=== PATIENT | female | born 1995 | race African-American/Black ===

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

== ENCOUNTER 2017-05-03 22:52 | Emergency (ER) | payer OTHER ==
[~2017-05-03] VITALS: Ht 152.4 cm; Wt 82.7 kg
[~2017-05-03 22:52] MED LIST changes: +CIPR0.3S OS; -COLA100C PO; +COLA100C5 PO; +birth control PO
[2017-05-04] MEDS: ACETAMINOPHEN 325 MG TAB PO ONE (00:07)
[2017-05-04] MEDS ORDERED: FLON1SPR (00:29)
[2017-05-04] MEDS ORDERED: IBUP-1022 PO (00:29)
[2017-05-04] MEDS ORDERED: BENZ200C53 PO (00:29)
[2017-05-04 00:37] VITALS: BP 138/79
== END 2017-05-04 00:39 | disposition home or self-care (01) ==
LOC: M ED 22:52
DX: J06.9 Acute upper respiratory infection, unspecified (principal)

== ENCOUNTER → 2017-05-14 | Outpatient (CLI) | payer OTHER ==
[~2017-05-14] MED LIST changes: +BENZ200C53 PO; +DOXY100C37 PO; +FLON1SPR; +IBUP-1022 PO; +MOTR200T44 PO; +RALT40TA PO; +TRUVTAB PO; +TYLE325T5 PO
[2017-05-14 07:41] LABS: BASO % 0.4 % (0.0-1.0); EOS # 0.1 K/mm3 (0.0-0.50); EOS % 1.3 % (0.0-3.0); LARGE UNSTAINED CELL # 0.2 K/mm3 (0.0-0.4); LARGE UNSTAINED CELL % 2.3 % (0.0-4.0); LYMPH # 3.5 K/mm3 (1.5-6.5); LYMPH % 39.2 % (24.0-44.0); MEAN CORPUSCULAR HEMOGLOBIN 30.1 pg (27.0-33.0); MEAN CORPUSCULAR HGB CONC 34.5 g/dl (32.0-36.5); MEAN CORPUSCULAR VOLUME 87.3 fl (80.0-96.0); MONO # 0.4 K/mm3 (0.0-0.8); MONO % 4.2 % (0.0-5.0); NEUTROPHILS # 4.4 K/mm3 (1.8-7.7); NEUTROPHILS % 52.7 % (36.0-66.0); PLATELET COUNT, AUTOMATED 318 k/mm3 (150-450); RED CELL DISTRIBUTION WIDTH 12.5 % (11.5-14.5); WHITE BLOOD COUNT 8.4 K/mm3 (4.0-10.0)
--- NOTE | 2017-05-14 07:44 | REP ---
Abdominal right upper quadrant ultrasound: There is a negative Villaseñor's sign to transducer pressure. There is no cholelithiasis, gallbladder wall thickening or pericholecystic fluid. There is no intrahepatic or extrahepatic biliary duct dilatation. The common duct measures 3.3 mm in diameter. The hepatic parenchyma is homogeneous. There are no hepatic masses. The visualized portion of the pancreatic head is unremarkable. The body and tail are obscured by bowel gas. There is no right renal hydronephrosis, calculus, mass or cyst. Right kidney is normal size measuring 11.2 centimeters cranial caudad length. Impression: Essentially negative abdominal right upper quadrant ultrasound. Signed by Seven Staley MD 05/14/2017 07:35 A
[2017-05-14 08:05] LABS: ALBUMIN 3.2 GM/DL (3.2-5.2); ALBUMIN/GLOBULIN RATIO 0.91 (1.00-1.93); ALKALINE PHOSPHATASE 72 U/L (45-117); ALT/SGPT 20 U/L (12-78); ANION GAP 10 MEQ/L (8-16); AST/SGOT 10 U/L (15-37); BILIRUBIN,TOTAL 0.4 MG/DL (0.2-1.0); BLOOD UREA NITROGEN 12 MG/DL (7-18); CARBON DIOXIDE LEVEL 23 MEQ/L (21-32); CHLORIDE LEVEL 107 MEQ/L (98-107); CREATININE FOR GFR 0.72 MG/DL (0.55-1.02); GLUCOSE, FASTING 82 MG/DL (70-105); POTASSIUM SERUM 4.1 MEQ/L (3.5-5.1); SODIUM LEVEL 140 MEQ/L (136-145); TOTAL PROTEIN 6.7 GM/DL (6.4-8.2)
== END ==
LOC: M RAD 07:04
PROVIDERS: ATTEND Nurse Practitioner Family
DX: R10.10 Upper abdominal pain, unspecified (principal)

== ENCOUNTER 2017-05-15 19:43 | Emergency (ER) | payer OTHER ==
[~2017-05-15] VITALS: Ht 152.4 cm; Wt 81.8 kg
[~2017-05-15 19:43] MED LIST changes: -DOXY100C37 PO; -MOTR200T44 PO; -RALT40TA PO; -TRUVTAB PO; -TYLE325T5 PO
[2017-05-15 19:52] VITALS: BP 132/79
[2017-05-15] MEDS ORDERED: cefTRIAXone SOD 250 MG VIAL (J0696) IM ONE (23:45)
[2017-05-15] MEDS ORDERED: EXPOSURE KIT-ADULT 7 DAY SUPPLY PO ONE ×2 (23:45)
[2017-05-15] MEDS ORDERED: OVRAL-28 TABLET PO ONE (23:45)
[2017-05-15] MEDS ORDERED: DOXYCYCLINE HYCLATE 100 MG TAB PO ONE (23:45)
[2017-05-16] MEDS ORDERED: TRUVTAB PO (00:06)
[2017-05-16] MEDS ORDERED: DOXY100C37 PO (00:06)
[2017-05-16] MEDS ORDERED: RALT40TA PO (00:06)
[2017-05-16 02:29] LABS: CONTROL LINE HCG INT CTR LINE PRESENT
[2017-05-16 02:53] LABS: CONTROL LINE INT CTR LINE PRESENT
[2017-05-16 11:27] LABS: HEPATITIS B SURFACE ANTIBODY POSITIVE (POSITIVE)
== END 2017-05-16 01:58 | disposition home or self-care (01) ==
LOC: M ED 19:43
DX: Z04.41 Encounter for examination and observation following alleged adult rape (principal)

== ENCOUNTER 2017-08-19 22:49 | Emergency (ER) | payer OTHER ==
[~2017-08-19] VITALS: Ht 154.9 cm; Wt 81.8 kg
[~2017-08-19 22:49] MED LIST changes: +DOXY100C37 PO; +RALT40TA PO; +TRUVTAB PO
[2017-08-19 22:51] VITALS: BP 155/93
[2017-08-19] MEDS ORDERED: TYLE325T5 PO (23:14)
[2017-08-19] MEDS ORDERED: MOTR200T44 PO (23:14)
== END 2017-08-20 02:40 | disposition left against medical advice (07) ==
LOC: M ED 22:49
DX: R51 Headache (principal); Z53.21 Procedure and treatment not carried out due to patient leaving prior to being seen by health care provider

== ENCOUNTER 2017-09-28 06:15 | Emergency (ER) | payer OTHER ==
[~2017-09-28] VITALS: Ht 162.6 cm; Wt 77.3 kg
[~2017-09-28 06:15] MED LIST changes: +MOTR200T44 PO; +TYLE325T5 PO
[2017-09-28] MEDS ORDERED: KETOROLAC 30 MG/ML VIAL (J1885) IV ONE (08:15)
[2017-09-28] MEDS ORDERED: NS 1,000 ML IV ONE (08:15)
[2017-09-28 08:36] LABS: BASO % 0.3 % (0.0-1.0); EOS # 0.1 10^3/uL (0.0-0.50); EOS % 0.8 % (0.0-3.0); IMMATURE GRANULOCYTE % 0.5 % (0-0); LYMPH # 1.6 10^3/uL (1.5-6.5); LYMPH % 13.2 % (24.0-44.0); MEAN CORPUSCULAR HEMOGLOBIN 29.5 pg (27.0-33.0); MEAN CORPUSCULAR HGB CONC 34.4 g/dl (32.0-36.5); MEAN CORPUSCULAR VOLUME 85.6 fl (80.0-96.0); NEUTROPHILS # 9.2 10^3/uL (1.8-7.7); NEUTROPHILS % 77.2 % (36.0-66.0); PLATELET COUNT, AUTOMATED 289 10^3/uL (150-450); RED CELL DISTRIBUTION WIDTH 12.4 % (11.5-14.5); WHITE BLOOD COUNT 11.9 10^3/uL (4.0-10.0)
[2017-09-28 08:59] LABS: ALBUMIN 3.4 GM/DL (3.2-5.2); ALBUMIN/GLOBULIN RATIO 0.92 (1.00-1.93); ALKALINE PHOSPHATASE 62 U/L (45-117); ALT/SGPT 16 U/L (12-78); AMYLASE 58 U/L (25-115); ANION GAP 9 MEQ/L (8-16); AST/SGOT 8 U/L (7-37); BILIRUBIN,DIRECT 0.2 MG/DL (0.0-0.2); BILIRUBIN,TOTAL 0.9 MG/DL (0.2-1.0); BLOOD UREA NITROGEN 14 MG/DL (7-18); CALCIUM LEVEL 8.3 MG/DL (8.5-10.1); CARBON DIOXIDE LEVEL 22 MEQ/L (21-32); CHLORIDE LEVEL 107 MEQ/L (98-107); CREATININE FOR GFR 0.67 MG/DL (0.55-1.02); GLUCOSE, FASTING 101 MG/DL (70-105); POTASSIUM SERUM 3.7 MEQ/L (3.5-5.1); SODIUM LEVEL 138 MEQ/L (136-145); TOTAL PROTEIN 7.1 GM/DL (6.4-8.2)
[2017-09-28] MEDS ORDERED: ZOFR4TAB3 PO (10:08)
[2017-09-28] MEDS ORDERED: PROT1TAB2 PO (10:08)
--- NOTE | 2017-09-28 10:08 | REP ---
GALLBLADDER ULTRASOUND: HISTORY: Right upper quadrant pain. COMPARISON: 05/14/2017 There are no filling defects in the gallbladder. The gallbladder wall measures 1.4 mm. The common bile duct measures 3.6 mm. The liver is normal in echogenicity. The pancreas is not seen due to overlying bowel gas. The right kidney measures 5.8 cm in transverse x 5.1 cm in AP x 11 cm in cephalocaudal dimensions. There is no hydronephrosis or mass. IMPRESSION: Normal gallbladder ultrasound. Signed by Manuel Limon MD 09/28/2017 10:10 A
[2017-09-28 10:13] VITALS: BP 131/86
== END 2017-09-28 10:22 | disposition home or self-care (01) ==
LOC: M ED 06:15
DX: K29.00 Acute gastritis without bleeding (principal); E28.2 Polycystic ovarian syndrome
CPT/HCPCS: 76705; 80048; 80076; 81001; 81025; 82150; 83690; 85025; 96374; 99284; J1885

== ENCOUNTER → 2017-12-03 | Outpatient (REF) | payer OTHER | LOC: M SFHCLERA 17:01 | DX: R59.0 Localized enlarged lymph nodes (principal) ==

== ENCOUNTER → 2017-12-12 | Outpatient (REF) | payer OTHER ==
[2017-12-12 21:59] LABS: CHLAMYDIA DNA AMPLIFICATION NEGATIVE (NEGATIVE); GC DNA AMPLIFICATION NEGATIVE (NEGATIVE)
== END ==
LOC: M SFHCLERA 17:27
DX: Z20.2 Contact with and (suspected) exposure to infections with a predominantly sexual mode of transmission (principal)

== ENCOUNTER → 2018-02-20 | Outpatient (REF) | payer OTHER | LOC: M SFHCLERA 10:47 | DX: N89.8 Other specified noninflammatory disorders of vagina (principal) | CPT/HCPCS: 87186 ==

== ENCOUNTER → 2018-03-01 | Outpatient (REF) | payer OTHER ==
[2018-03-02 13:22] LABS: CHLAMYDIA DNA AMPLIFICATION NEGATIVE (NEGATIVE); GC DNA AMPLIFICATION NEGATIVE (NEGATIVE)
== END ==
LOC: M SFHCLERA 16:33
DX: R10.30 Lower abdominal pain, unspecified (principal)
CPT/HCPCS: 87086

== ENCOUNTER 2018-09-21 21:29 | Emergency (ER) | payer OTHER ==
[2018-09-21 22:33] LABS: KETONE, URINE AUTO RFX NEGATIVE (NEGATIVE); LEUKOCYTE ESTERASE UR AUTO RFX NEGATIVE (NEGATIVE); MUCUS, URINE RFX SMALL (NEGATIVE); NITRITE, URINE AUTO RFX NEGATIVE (NEGATIVE); RBC, URINE AUTO RFX 0 /HPF (0-3); SPECIFIC GRAVITY UR AUTO RFX 1.013 (1.002-1.035); SQUAM EPITHELIAL CELL UR AURFX 0 /HPF (0-6); WBC, URINE AUTO RFX 2 /HPF (0-3)
[2018-09-21 23:12] LABS: BASO % 0.3 % (0.0-1.0); EOS # 0.1 10^3/uL (0.0-0.50); EOS % 0.8 % (0.0-3.0); HEMATOCRIT 37.7 % (36.0-47.0); HEMOGLOBIN 12.9 g/dl (12.0-15.5); IMMATURE GRANULOCYTE % 0.4 % (0-3.0); LYMPH # 3.1 10^3/uL (1.5-6.5); LYMPH % 26.1 % (24.0-44.0); MEAN CORPUSCULAR HEMOGLOBIN 28.7 pg (27.0-33.0); MEAN CORPUSCULAR HGB CONC 34.2 g/dl (32.0-36.5); MONO # 0.7 10^3/uL (0.0-0.8); MONO % 6.1 % (0.0-5.0); NEUTROPHILS # 7.8 10^3/uL (1.8-7.7); NEUTROPHILS % 66.3 % (36.0-66.0); PLATELET COUNT, AUTOMATED 323 10^3/uL (150-450); RED BLOOD COUNT 4.49 10^6/uL (4.00-5.40); RED CELL DISTRIBUTION WIDTH 12.9 % (11.5-14.5); WHITE BLOOD COUNT 11.8 10^3/uL (4.0-10.0)
[2018-09-21] MEDS: diphenhydrAMINE INJ 50MG/ML VIAL (J1200) IV (23:15)
[2018-09-21] MEDS: METOCLOPRAMIDE INJ 10MG/2ML VIAL (J2765) IV (23:15)
[2018-09-21] MEDS: ACETAMINOPHEN TAB 650MG DOSE (2X325MG) PO (23:15)
[2018-09-21] MEDS: NS 1,000 ML IV (23:16)
[2018-09-21 23:45] LABS: ALBUMIN 3.4 GM/DL (3.2-5.2); ALKALINE PHOSPHATASE 104 U/L (45-117); ALT/SGPT 24 U/L (12-78); ANION GAP 11 MEQ/L (8-16); AST/SGOT 12 U/L (7-37); BILIRUBIN,TOTAL 0.4 MG/DL (0.2-1.0); BLOOD UREA NITROGEN 7 MG/DL (7-18); CALCIUM LEVEL 8.4 MG/DL (8.5-10.1); CARBON DIOXIDE LEVEL 22 MEQ/L (21-32); CHLORIDE LEVEL 103 MEQ/L (98-107); CREATININE FOR GFR 0.57 MG/DL (0.55-1.30); GLOMERULAR FILTRATION RATE > 60.0 (>60); GLUCOSE, FASTING 85 MG/DL (70-100); HCG, SERUM QUANTITATIVE 28188 MIU/ML; LIPASE 138 U/L (73-393); POTASSIUM SERUM 3.6 MEQ/L (3.5-5.1); SODIUM LEVEL 136 MEQ/L (136-145); TOTAL PROTEIN 6.8 GM/DL (6.4-8.2)
[2018-09-21] MEDS ORDERED: NORCO 5/325MG TABLET (BULK FOR ED) PO (23:45)
[2018-09-21 23:50] LABS: INFLUENZA A AMPLIFICATION NEGATIVE (NEGATIVE); INFLUENZA B AMPLIFICATION NEGATIVE (NEGATIVE)
== END 2018-09-22 01:42 | disposition home or self-care (01) ==
LOC: M ED 09-22 01:42
DX: O99.89 Other specified diseases and conditions complicating pregnancy, childbirth and the puerperium (principal); G43.909 Migraine, unspecified, not intractable, without status migrainosus; E28.2 Polycystic ovarian syndrome; Z3A.01 Less than 8 weeks gestation of pregnancy
CPT/HCPCS: J1200

== ENCOUNTER → 2018-10-01 | Outpatient (CLI) | payer OTHER ==
[2018-10-01 14:25] LABS: BASO % 0.3 % (0.0-1.0); EOS # 0.1 10^3/uL (0.0-0.50); EOS % 0.8 % (0.0-3.0); HEMATOCRIT 36.4 % (36.0-47.0); HEMOGLOBIN 12.5 g/dl (12.0-15.5); IMMATURE GRANULOCYTE % 0.4 % (0-3.0); LYMPH % 17.6 % (24.0-44.0); MEAN CORPUSCULAR HEMOGLOBIN 28.7 pg (27.0-33.0); MEAN CORPUSCULAR HGB CONC 34.3 g/dl (32.0-36.5); MEAN CORPUSCULAR VOLUME 83.7 fl (80.0-96.0); MONO # 0.8 10^3/uL (0.0-0.8); NEUTROPHILS # 8.5 10^3/uL (1.8-7.7); NEUTROPHILS % 73.9 % (36.0-66.0); PLATELET COUNT, AUTOMATED 304 10^3/uL (150-450); RED BLOOD COUNT 4.35 10^6/uL (4.00-5.40); RED CELL DISTRIBUTION WIDTH 12.8 % (11.5-14.5); WHITE BLOOD COUNT 11.6 10^3/uL (4.0-10.0)
[2018-10-01 16:09] LABS: CHLAMYDIA DNA AMPLIFICATION NEGATIVE (NEGATIVE); GC DNA AMPLIFICATION NEGATIVE (NEGATIVE)
[2018-10-02 11:46] LABS: HEPATITIS C VIRUS ABY INDEX 0.1 INDEX (<0.8)
[2018-10-02 11:46] LABS: HBsAg Prenatal NEGATIVE (NEGATIVE); HIV 1&2 SCREEN CENTAUR NEGATIVE (NEGATIVE); RUBELLA IgG QUALITATIVE IMMUNE (IMMUNE)
== END ==
LOC: M SMT 10:36
DX: Z34.81 Encounter for supervision of other normal pregnancy, first trimester (principal); Z36.89 Encounter for other specified antenatal screening; Z3A.08 8 weeks gestation of pregnancy

== ENCOUNTER → 2018-10-29 | Outpatient (REF) | payer OTHER ==
[~2018-10-29] MED LIST changes: -BENZ200C53 PO; +BENZ200C70 PO; +MAPA500T2 PO; +PRENMIS3 PO; +PROT1TAB2 PO; +REGL10TA6 PO; +ZOFR4TAB14 PO
[2018-10-29 23:03] LABS: CHLAMYDIA DNA AMPLIFICATION NEGATIVE (NEGATIVE); GC DNA AMPLIFICATION NEGATIVE (NEGATIVE)
== END ==
LOC: M SFHCLERA 13:19
PROVIDERS: ATTEND Nurse Practitioner Family
DX: N89.8 Other specified noninflammatory disorders of vagina (principal)
CPT/HCPCS: 81002; 87070; 87077; 87086; 87491; 87591; G0463

== ENCOUNTER → 2018-11-12 | Outpatient (CLI) | payer OTHER | LOC: M LAB 12:44 | PROVIDERS: ATTEND Advanced Practice Midwife | DX: Z34.82 Encounter for supervision of other normal pregnancy, second trimester (principal) ==

== ENCOUNTER 2018-11-25 11:19 | Emergency (ER) | payer OTHER ==
[~2018-11-25] VITALS: Ht 154.9 cm; Wt 85.3 kg
[2018-11-25] MEDS ORDERED: VALA1TAB2 (11:25)
[2018-11-25 13:21] VITALS: BP 116/69
[2018-11-25] MEDS ORDERED: CLOT1CRE19 PV (13:39)
[2018-11-25 14:27] LABS: CHLAMYDIA DNA AMPLIFICATION NEGATIVE (NEGATIVE); GC DNA AMPLIFICATION NEGATIVE (NEGATIVE)
== END 2018-11-25 13:44 | disposition home or self-care (01) ==
LOC: M ED 11:19
DX: O23.592 Infection of other part of genital tract in pregnancy, second trimester (principal); B37.3 Candidiasis of vulva and vagina; Z3A.16 16 weeks gestation of pregnancy

== ENCOUNTER → 2018-12-10 | Outpatient (CLI) | payer OTHER ==
[~2018-12-10] MED LIST changes: +CLOT1CRE19 PV; +VALA1TAB2
--- NOTE | 2018-12-10 09:11 | REP ---
Obstetric ultrasound for anatomy: There is a single intrauterine gestation in a breech presentation. There is motion and cardiac activity. The heart rate is 146 beats per minute. The placenta is posterior without previa or abruptio. The placenta is grade zero maturity. The amniotic fluid volume subjectively is normal. The cervix measures 4.9 cm length. Gestational age by today's ultrasound is 17 weeks 3 days/ALEX 05/17/2019. Gestational age by the first ultrasound is 17 weeks 4 days/ALEX 05/16/2019. Gestational age by LMP is 18 weeks 1 day/ALEX 05/12/2019. weight is 194 grams (0 pounds, 6 ounces). This is the 22nd percentile for 18 weeks 1 day. The following anatomic structures are identified and are unremarkable: Intracranial lateral ventricles, choroid plexus, cerebellum, face, upper lip, lungs, diaphragm, stomach, cord insertion, three-vessel cord, kidneys, bladder and upper lower extremities. The following structures are suboptimally evaluated because of position: Four-chamber view of the heart, cardiac right and left ventricular outflow tracts and spine. A followup study dedicated to these structures might be considered. Electronically Signed by Seven Staley MD 12/10/2018 09:02 A
== END ==
LOC: M RAD 07:37
PROVIDERS: ATTEND Specialist
DX: Z34.82 Encounter for supervision of other normal pregnancy, second trimester (principal); Z3A.17 17 weeks gestation of pregnancy

== ENCOUNTER → 2018-12-30 | Outpatient (CLI) | payer OTHER ==
--- NOTE | 2018-12-31 03:13 | REP ---
Clinical: Anatomical evaluation. Comparison: 12/10/2018 . Findings: Examination demonstrates a single live intrauterine in cephalic presentation. motion is identified by technologist. Placenta is noted posterior and grade grade 1 without evidence for placenta previa or abruption. Amniotic fluid volume is normal. Cervix measures 4.0 cm in length and appears closed. No evidence for nuchal cord. Gestational age by LMP 21 weeks 0 days with ALEX 05/12/2019 . Gestational age by current measurements 20 weeks 2 days with ALEX 05/17/2019 . FHR equals 153 beats per minute. Estimated weight 374 grams ( 38th percentile). Anatomical assessment demonstrates normal structures including cranium, choroid plexus, cavum, cerebellum/posterior fossa, facial features, lungs, four-chamber heart/ventricular outflow tracts, diaphragm, stomach, cord insertion/three-vessel cord, kidneys/bladder, spine, and extremities. Impression: Single live intrauterine in cephalic presentation demonstrating appropriate interval growth. In conjunction with prior examination anatomical assessment is complete and normal. No gross abnormalities are identified. Electronically Signed by Magdy Burroughs MD 12/31/2018 03:05 A
== END ==
LOC: M SMT 13:00
PROVIDERS: ATTEND Specialist
DX: Z34.82 Encounter for supervision of other normal pregnancy, second trimester (principal); Z3A.21 21 weeks gestation of pregnancy

== ENCOUNTER → 2019-02-05 | Outpatient (CLI) | payer OTHER ==
[~2019-02-05] MED LIST changes: -ACET50TA PO; +MAPA500T17 PO
[2019-02-05 12:01] LABS: BASO % 0.2 % (0.0-1.0); EOS % 0.4 % (0.0-3.0); HEMATOCRIT 33.3 % (36.0-47.0); HEMOGLOBIN 11.2 g/dl (12.0-15.5); LYMPH # 1.6 10^3/uL (1.5-6.5); LYMPH % 14.7 % (24.0-44.0); MEAN CORPUSCULAR HGB CONC 33.6 g/dl (32.0-36.5); MEAN CORPUSCULAR VOLUME 89.3 fl (80.0-96.0); MONO # 0.6 10^3/uL (0.0-0.8); MONO % 5.1 % (0.0-5.0); NEUTROPHILS # 8.8 10^3/uL (1.8-7.7); NEUTROPHILS % 79.1 % (36.0-66.0); PLATELET COUNT, AUTOMATED 238 10^3/uL (150-450); RED BLOOD COUNT 3.73 10^6/uL (4.00-5.40)
== END ==
LOC: M WUC 10:28
PROVIDERS: ATTEND Specialist
DX: Z34.82 Encounter for supervision of other normal pregnancy, second trimester (principal)

== ENCOUNTER 2019-03-21 12:18 | Outpatient (CLI) | payer OTHER ==
[~2019-03-21] VITALS: Ht 154.9 cm; Wt 89.0 kg
[2019-03-21 12:33] VITALS: BP 116/70
--- NOTE | 2019-03-21 13:17 | NUR ---
L&D Triage Note: S: 23yo @ 34w0d presents with c/o vaginal spotting. Reports active movement. No ctx or LOF O: vss, AF cat 1 tracing with FHR 140s, spont acceleration, no deceleration moderate variability gen: well appearing abd: soft, nttp cx:l/closed SSE: no active bleeding or old blood A/P: 23yo at 34w0d w c/o vaginal bleeding, normal exam -reassuring status home with PTL precautions and FKCs -f/u at next OB appt 03/29 Ranjana Barone MD
== END 2019-03-21 13:30 | disposition home or self-care (01) ==
LOC: M LDO 12:18
PROVIDERS: ATTEND Obstetrics & Gynecology
DX: O26.853 Spotting complicating pregnancy, third trimester (principal); Z3A.34 34 weeks gestation of pregnancy
CPT/HCPCS: 59025; G0378; G0463

== ENCOUNTER → 2019-04-13 | Outpatient (REF) | payer OTHER | LOC: M LAB REF 17:46 | PROVIDERS: ATTEND Specialist | DX: Z34.83 Encounter for supervision of other normal pregnancy, third trimester (principal); Z3A.35 35 weeks gestation of pregnancy ==

== ENCOUNTER 2019-04-21 00:19 | Outpatient (CLI) | payer OTHER ==
[~2019-04-21] VITALS: Ht 154.9 cm; Wt 90.5 kg
[2019-04-21 02:05] VITALS: BP 139/86
[2019-04-21] MEDS ORDERED: ACET-907 PO (07:54)
== END 2019-04-21 01:56 | disposition home or self-care (01) ==
LOC: M LDO 00:19
PROVIDERS: ATTEND Specialist
DX: O26.853 Spotting complicating pregnancy, third trimester (principal); O26.893 Other specified pregnancy related conditions, third trimester; R10.30 Lower abdominal pain, unspecified; O47.1 False labor at or after 37 completed weeks of gestation; Z3A.37 37 weeks gestation of pregnancy
CPT/HCPCS: 59025; G0378; G0463

== ENCOUNTER 2019-04-24 12:20 | Outpatient (CLI) | payer OTHER ==
[2019-04-24] VITALS (7 sets, daily range): BP systolic 101–135; BP diastolic 58–86
[~2019-04-24] VITALS: Ht 154.9 cm; Wt 88.4 kg
[~2019-04-24 12:20] MED LIST changes: -OXYC1TAB23 PO; -PRENTAB9 PO; -ZOFR4TAB16 PO
[2019-04-24] MEDS ORDERED: ONDANSETRON 4 MG ORAL DISINTEGRATING TAB (Q0162 PER 1MG) As Ordered ONE (13:26)
[2019-04-24] MEDS ORDERED: ONDANSETRON 4 MG ORAL DISINTEGRATING TAB (Q0162 PER 1MG) SL ONE (13:30)
[2019-04-24] MEDS ORDERED: LR 1,000 ML IV ONE (14:30)
[2019-04-24] MEDS ORDERED: ACETAMINOPHEN 500 MG TAB PO ONE (17:00)
[2019-04-24] MEDS ORDERED: ZOFR4TAB16 PO (18:00)
--- NOTE | 2019-04-24 18:04 | NUR ---
L&D Triage Note Reason for visit: multiple complaints. Subjective 23 year old at 37+ weeks gestation. EDC:05/12/19. Complains of frequent, painful contractions. Also complains of VASQUEZ and nausea/vomiting. Denies vaginal bleeding or loss of fluid. Reports regular, frequent movement. course notable for h/o LTCS x 1; plans on repeat LTCS. Objective Vitals:All BP readings normotensive Heart: Regular rate and rhythm. No murmurs, gallops, rubs Lungs: Clear to auscultation bilaterally. No wheezes, crackles, rales or rhonchi Abdomen: Uterine fundus , nontender and fundal height consistent with gestational age. No guarding or rebound tenderness. Pelvic: FT/long/high Extremities: nonedematous, nontender. External monitoring/NST:Reactive, normal baseline, moderate variability, no decelerations. Tocodynamometer: contractions are not present Assessment/Plan 23 year old at 37+ weeks gestation. No evidence of active labor or ruptured membranes. Reassuring maternal and status. Normotensive. No e/o GHTN or pre-e. -Routine labor, movement/kick count, and obstetric emergency precautions reviewed. -Follow-up with appointment as currently scheduled. -Pt's VASQUEZ and nausea improved with Zofran, Tylenol and IV fluids. -Advised adequate hydration. Dr. Bismark Lomeli, D.O., F.A.C.O.G.
[2019-04-28] MEDS ORDERED: OXYC1TAB23 PO (07:14)
== END 2019-04-24 18:08 | disposition home or self-care (01) ==
LOC: M LDO 12:20
PROVIDERS: ATTEND Obstetrics & Gynecology
DX: O99.89 Other specified diseases and conditions complicating pregnancy, childbirth and the puerperium (principal); R51 Headache; R11.0 Nausea; Z3A.37 37 weeks gestation of pregnancy
CPT/HCPCS: 59025; 81002; 86308; 87880; G0378; G0463; Q0162

== ENCOUNTER → 2019-04-24 | Outpatient (REF) | payer OTHER ==
[~2019-04-24] MED LIST changes: +ACET-907 PO; +OXYC1TAB23 PO; +PRENTAB9 PO; +ZOFR4TAB16 PO
== END ==
LOC: M SFHCLERA 11:01
PROVIDERS: ATTEND Nurse Practitioner Family
DX: J02.9 Acute pharyngitis, unspecified (principal)

== ENCOUNTER 2019-04-28 05:38 | Inpatient (IN) | payer OTHER ==
[2019-04-28] VITALS (9 sets, daily range): BP systolic 115–138; BP diastolic 75–93
[~2019-04-28] VITALS: Ht 154.9 cm; Wt 90.0 kg
[~2019-04-28 05:38] MED LIST changes: +ZOFR4TAB16 PO
[2019-04-28] MEDS ORDERED: PRENTAB9 PO (05:59)
[2019-04-28] MEDS ORDERED: LR 1,000 ML IV SCH ×2 (06:00→11:15)
[2019-04-28] MEDS ORDERED: BICITRA 30ML SOLN UDC PO ONE (06:00)
[2019-04-28] MEDS ORDERED: LR 800 ML IV ONE (06:00)
[2019-04-28 06:32] LABS: HEMATOCRIT 32.2 % (36.0-47.0); HEMOGLOBIN 10.7 g/dl (12.0-15.5); MEAN CORPUSCULAR HEMOGLOBIN 28.1 pg (27.0-33.0); MEAN CORPUSCULAR HGB CONC 33.2 g/dl (32.0-36.5); MEAN CORPUSCULAR VOLUME 84.5 fl (80.0-96.0); PLATELET COUNT, AUTOMATED 217 10^3/uL (150-450); RED BLOOD COUNT 3.81 10^6/uL (4.00-5.40); WHITE BLOOD COUNT 7.3 10^3/uL (4.0-10.0)
[2019-04-28] MEDS ORDERED: OXYTOCIN INJ 10 UNITS/ML VIAL (J2590) As Ordered ONE (07:07)
[2019-04-28] MEDS ORDERED: ACETAMINOPHEN 1000MG 100ML IV BTL (OFIRMEV) (J0131 PER 10MG) As Ordered ONE (07:11)
[2019-04-28] MEDS ORDERED: OXYC1TAB23 PO (07:14)
[2019-04-28] MEDS ORDERED: KETOROLAC 60 MG/2 ML VIAL (J1885) As Ordered ONE (07:14)
[2019-04-28] MEDS ORDERED: ONDANSETRON 4MG/2ML VIAL (J2405) As Ordered ONE (07:14)
[2019-04-28] MEDS ORDERED: fentaNYL 100 MCG/2 ML INJECTION (J3010) As Ordered ONE (07:14)
[2019-04-28] MEDS ORDERED: MORPHINE PRES-FREE INJ 10 MG/10 ML VIAL (J2274) As Ordered ONE (07:15)
[2019-04-28] MEDS ORDERED: IBUP-1022 PO (07:16)
[2019-04-28] MEDS ORDERED: METOCLOPRAMIDE INJ 10MG/2ML VIAL (J2765) As Ordered ONE (08:47)
[2019-04-28] MEDS ORDERED: MEASLES,MUMPS,RUBELLA VACCINE INJ (MMR-II) (90707) SC SCH (09:15)
[2019-04-28] MEDS ORDERED: DOCUSATE SODIUM 100 MG CAP PO PRN (09:15)
[2019-04-28] MEDS ORDERED: METHYLERGONOVINE MALEATE 0.2 MG TAB PO PRN (09:15)
[2019-04-28] MEDS ORDERED: ACETAMINOPHEN 500 MG TAB PO PRN (09:15)
[2019-04-28] MEDS ORDERED: RHOGAM 300 MCG (1500 IU) INJ (J2790) IM SCH (09:15)
[2019-04-28] MEDS ORDERED: ONDANSETRON 4MG/2ML VIAL (J2405) IV PRN ×2 (09:15→09:45)
[2019-04-28] MEDS ORDERED: DIBUCAINE 1% OINTMENT 30GM TOP PRN (09:15)
[2019-04-28] MEDS ORDERED: KETOROLAC 30 MG/ML VIAL (J1885) IV PRN (09:45)
[2019-04-28] MEDS ORDERED: PROMETHAZINE INJ 25 MG/ML VIAL (J2550) IV PRN (09:45)
[2019-04-28] MEDS ORDERED: fentaNYL 100 MCG/2 ML INJECTION (J3010) IV PRN (09:45)
[2019-04-28] MEDS ORDERED: PERCOCET 5MG/325MG TAB PO PRN (10:45)
--- NOTE | 2019-04-28 11:29 | RO ---
DATE OF PROCEDURE: 04/28/2019 PREPROCEDURE DIAGNOSIS: 38 weeks, gestational hypertension, history of recurrent genital herpes simplex virus (HSV). POSTPROCEDURE DIAGNOSIS: 38 weeks, gestational hypertension, history of recurrent genital (HSV). PROCEDURE: Primary low transverse section and bilateral tubal ligation SURGEON: Manuel Jiménez MD GRADE FOREMAN: Carrie Santillan CNM ANESTHESIA: Spinal. ESTIMATED BLOOD LOSS: 600 mL. URINE OUTPUT: 50 mL. FINDINGS: 2690 gram or 5 pound and 5 ounce female , Apgars 7 and 8, vertex position. Normal uterus, fallopian tubes and ovaries. DESCRIPTION OF PROCEDURE: The patient was taken to the operating room where spinal anesthesia was induced. She was prepped and draped in sterile fashion in the supine position. A Ohara catheter was placed. A Pfannenstiel skin incision was made with the scalpel and carried through to the fascia. The fascia nicked and extended. The fascia was dissected off the rectus muscles. The peritoneal cavity was entered. A bladder flap was created. A curvilinear incision was made in the lower uterine segment until clear fluid was noted. This was extended manually. The infant was delivered from the vertex position without difficulty. The cord was doubly clamped and cut. The was handed off to the awaiting nurses. The placenta was expressed. The uterus was exteriorized and cleared of clots and debris. The uterine incision was closed with #0 Vicryl in a running locked fashion. A second imbricating layer of #0 Vicryl was placed. Attention was turned to the fallopian tubes. The right fallopian tube was cross clamped including the fimbriated end and a segment of tube was excised. The area was suture ligated with #2-0 Vicryl. Arden clamp was placed on the left fallopian tube at its mid portion. A window was created in the broad ligament. A free tie of #2-0 chromic was placed around each segment of tube on either side of the Arden clamp and the segment of tube was excised for pathology. The uterus was placed back in the abdominal cavity. Good hemostasis was noted. The peritoneum was closed with #2-0 Vicryl in a running fashion. The fascia was closed with #0 Vicryl. The deep layer was irrigated and closed with #3-0 chromic. The skin was closed with #4-0 Monocryl subcuticular suture. Sponge, instrument and needle instrument counts were correct. Carrie Santillan CNM, assisted in all aspects of the procedure from beginning to end. She helped create all layers of the incision, including the hysterotomy. She helped with expulsion of the fetus. She helped with the tubal ligation and closure of all layers. PRABHA
[2019-04-28] MEDS ORDERED: LR 500 ML IV ONE (16:00)
[2019-04-28] MEDS: KETOROLAC 30 MG/ML VIAL (J1885) IV SCH ×2 (16:38→23:44)
[2019-04-28] MEDS ORDERED: IBUPROFEN 800 MG TAB PO PRN (17:00)
[2019-04-29 02:21] VITALS: BP 116/63
[2019-04-29] MEDS: KETOROLAC 30 MG/ML VIAL (J1885) IV SCH (04:00)
[2019-04-29 06:43] VITALS: BP 116/83
[2019-04-29] MEDS: PRENATAL VITAMINS CHEWABLE TABLET PO SCH (08:24)
[2019-04-29] MEDS: PERCOCET 5MG/325MG TAB PO PRN ×2 (08:25→16:52)
[2019-04-29 10:20] VITALS: BP 124/79
[2019-04-29] MEDS: IBUPROFEN 800 MG TAB PO SCH ×2 (13:38→20:07)
[2019-04-29 15:19] VITALS: BP 132/84
[2019-04-29 18:07] VITALS: BP 123/74
[2019-04-29 22:00] VITALS: BP 116/82
[2019-04-30] MEDS: IBUPROFEN 800 MG TAB PO SCH (04:39)
[2019-04-30 05:18] VITALS: BP 141/67
--- NOTE | 2019-04-30 06:50 | NUR ---
Discharge Summary Date of admission: 04/28/19 Date of discharge: 04/30/19 Admitting diagnosis: 38+ weeks. GHTN. H/o GHSV/recurrent Discharge diagnosis: Status post primary low transverse section. Discharge Summary: 23 year-old now para 1. She was admitted on 04/28/19 at 38+ weeks EGA for a scheduled PLTCS. The patient's intraoperative and postoperative courses were uncomplicated. By postoperative day #2, the patient was meeting all discharge c riteria. Her pain was well controlled on oral pain meds. She was ambulating without assistance, voiding spontaneously, tolerating a regular diet, and her lochia/bleeding was minimal. Physical exam on date of discharge: Vitals: normotensive, normal HR, afebrile Heart: regular rate and rhythm with no murmurs, gallops, rubs. Lungs: clear to auscultation bilaterally, no wheezes, crackles, rales, ronchi Abd: soft, non-distended, appropriately tender. Normoactive bowel sounds. Incision: clean, dry, intact without surrounding erythema or induration. Ext: non-edematous, non-tender, negative Husam's sign bilaterally Assessment/Plan: 23 year-old status post primary low transverse delivery on 04/28/19 now postoperative day #2. Hemodynamically stable, afebrile, with good pain control. Meeting all discharge criteria. -Routine infectious, fever, pain, and bleeding precautions reviewed -Surgical wound/incisional care / precautions reviewed. -Discharge medications: Percocet, Motrin, Colace. -Outpatient follow up in 1-2 weeks for a routine incision / postoperative check. Dr. Bismark Lomeli, DO, FACOG
[2019-04-30] MEDS: PRENATAL VITAMINS CHEWABLE TABLET PO SCH (09:00)
== END 2019-04-30 11:50 | disposition home or self-care (01) | DRG 785 ==
LOC: M LDI 05:38 → M OBS 11:25
PROVIDERS: ADMIT Specialist; ATTEND Specialist
PROC: 0UB70ZZ Excision of Bilateral Fallopian Tubes, Open Approach (ICD-10-PCS; 2019-04-28)
PROC: 10D00Z1 Extraction of Products of Conception, Low, Open Approach (ICD-10-PCS; principal; 2019-04-28 07:30)
DX: O98.32 Other infections with a predominantly sexual mode of transmission complicating childbirth (principal); A60.09 Herpesviral infection of other urogenital tract; O13.4 Gestational [pregnancy-induced] hypertension without significant proteinuria, complicating childbirth; Z3A.38 38 weeks gestation of pregnancy; Z37.0 Single live birth; Z30.2 Encounter for sterilization

== ENCOUNTER 2019-05-11 16:06 | Emergency (ER) | payer OTHER ==
[~2019-05-11] VITALS: Ht 154.9 cm; Wt 82.7 kg
[~2019-05-11 16:06] MED LIST changes: +OXYC1TAB23 PO; +PRENTAB9 PO
[2019-05-11 16:07] VITALS: BP 138/93
== END 2019-05-11 17:56 | disposition left against medical advice (07) ==
LOC: M ED 16:06
DX: Z53.21 Procedure and treatment not carried out due to patient leaving prior to being seen by health care provider (principal)

== ENCOUNTER 2019-05-20 00:53 | Emergency (ER) | payer OTHER ==
[~2019-05-20] VITALS: Ht 154.9 cm; Wt 82.7 kg
[2019-05-20] MEDS ORDERED: MORPHINE 4 MG/ML 1ML VIAL/SYRINGE (J2270) IV ONE (03:00)
[2019-05-20 03:21] LABS: BASO # 0.1 10^3/uL (0.0-0.2); BASO % 0.6 % (0.0-1.0); EOS # 0.1 10^3/uL (0.0-0.50); EOS % 1.3 % (0.0-3.0); HEMATOCRIT 35.9 % (36.0-47.0); HEMOGLOBIN 11.4 g/dl (12.0-15.5); LYMPH # 3.4 10^3/uL (1.5-6.5); LYMPH % 37.8 % (24.0-44.0); MEAN CORPUSCULAR HEMOGLOBIN 26.6 pg (27.0-33.0); MEAN CORPUSCULAR HGB CONC 31.8 g/dl (32.0-36.5); MEAN CORPUSCULAR VOLUME 83.9 fl (80.0-96.0); MONO # 0.7 10^3/uL (0.0-0.8); MONO % 7.8 % (0.0-5.0); NEUTROPHILS # 4.7 10^3/uL (1.8-7.7); NEUTROPHILS % 52.2 % (36.0-66.0); PLATELET COUNT, AUTOMATED 344 10^3/uL (150-450); RED BLOOD COUNT 4.28 10^6/uL (4.00-5.40); WHITE BLOOD COUNT 9.1 10^3/uL (4.0-10.0)
[2019-05-20 03:30] LABS: ALBUMIN 3.5 GM/DL (3.2-5.2); ALT/SGPT 18 U/L (12-78); BILIRUBIN,TOTAL 0.4 MG/DL (0.2-1.0); BLOOD UREA NITROGEN 14 MG/DL (7-18); C REACTIVE PROTEIN QUANTITATIV 0.71 MG/DL (0.00-0.30); CALCIUM LEVEL 9.2 MG/DL (8.5-10.1); CARBON DIOXIDE LEVEL 27 MEQ/L (21-32); CHLORIDE LEVEL 107 MEQ/L (98-107); CREATININE FOR GFR 0.73 MG/DL (0.55-1.30); GLOMERULAR FILTRATION RATE > 60.0 (>60); GLUCOSE, FASTING 91 MG/DL (70-100); POTASSIUM SERUM 4.5 MEQ/L (3.5-5.1); SODIUM LEVEL 141 MEQ/L (136-145); TOTAL PROTEIN 7.2 GM/DL (6.4-8.2)
[2019-05-20] MEDS ORDERED: KETOROLAC 30 MG/ML VIAL (J1885) IV ONE (03:30)
[2019-05-20 03:36] LABS: APPEARANCE, URINE CLEAR (CLEAR); BACTERIA, URINE AUTO NEGATIVE (NEGATIVE); BILIRUBIN, URINE AUTO NEGATIVE (NEGATIVE); BLOOD, URINE BLOOD 1+ (NEGATIVE); COLOR, URINE YELLOW (YELLOW); GLUCOSE, URINE (UA) AUTO NEGATIVE (NEGATIVE); KETONE, URINE AUTO NEGATIVE (NEGATIVE); LEUKOCYTE ESTERASE, URINE AUTO TRACE (NEGATIVE); MUCUS, URINE SMALL (NEGATIVE); NITRITE, URINE AUTO NEGATIVE (NEGATIVE); PROTEIN, URINE AUTO NEGATIVE (NEGATIVE); RBC, URINE AUTO 3 /HPF (0-3); SPECIFIC GRAVITY URINE AUTO 1.019 (1.002-1.035); SQUAMOUS EPITHELIAL CELL UR AU 2 /HPF (0-6); UROBILINOGEN, URINE AUTO 0.2 mg/dL (0.0-2.0); WBC, URINE AUTO 3 /HPF (0-3)
[2019-05-20 03:51] LABS: ERYTHROCYTE SEDIMENTATION RATE 37 mm/hr (0-20)
[2019-05-20 04:11] VITALS: BP 184/102
[2019-05-20] MEDS ORDERED: LABE10TAB PO (04:40)
[2019-05-20] MEDS ORDERED: LABETALOL 100 MG TAB PO ONE (04:45)
[2019-05-20 04:46] VITALS: BP 184/102
--- NOTE | 2019-05-20 06:05 | REPVR ---
EXAM: US Abdomen Limited EXAM DATE/TIME: 05/20/2019 3:26 AM CLINICAL HISTORY: 23 years old, female; Other: Pain over c-sec scar; Prior surgery; Surgery date: <1 month; Additional info: C/s scar pain, R/O seroma TECHNIQUE: Imaging protocol: Real-time ultrasound of the abdomen with image documentation. Examination is focused on the region of clinical interest. COMPARISON: No relevant prior studies available. FINDINGS: Scanning over a scar demonstrates no deep fluid collections. There is superficial subcutaneous edema. No significant localized fluid collections are evident. Within the area of edema, there is a hypoechoic area measuring 6 x 4 x 3 mm. IMPRESSION: Scanning over a scar demonstrates subcutaneous edema with no significant fluid collections deep or superficial. Electronically signed by: Dom Coles On 05/20/2019 06:05:26 AM
== END 2019-05-20 04:47 | disposition home or self-care (01) ==
LOC: M ED 00:53
DX: O90.0 Disruption of cesarean delivery wound (principal); L76.34 Postprocedural seroma of skin and subcutaneous tissue following other procedure; O13.5 Gestational [pregnancy-induced] hypertension without significant proteinuria, complicating the puerperium; O99.711 Diseases of the skin and subcutaneous tissue complicating pregnancy, first trimester
CPT/HCPCS: 76705; 80053; 81001; 85025; 85652; 86140; 87070; 87186; 96374; 99284; J1885

== ENCOUNTER → 2019-05-21 | Outpatient (CLI) | payer OTHER ==
[~2019-05-21] MED LIST changes: +LABE10TAB PO
[2019-05-21 18:11] LABS: HEMATOCRIT 34.8 % (36.0-47.0); HEMOGLOBIN 11.1 g/dl (12.0-15.5); MEAN CORPUSCULAR HEMOGLOBIN 26.7 pg (27.0-33.0); MEAN CORPUSCULAR HGB CONC 31.9 g/dl (32.0-36.5); MEAN CORPUSCULAR VOLUME 83.7 fl (80.0-96.0); PLATELET COUNT, AUTOMATED 312 10^3/uL (150-450); RED BLOOD COUNT 4.16 10^6/uL (4.00-5.40); WHITE BLOOD COUNT 8.6 10^3/uL (4.0-10.0)
[2019-05-21 18:17] LABS: ALT/SGPT 17 U/L (12-78); BILIRUBIN,TOTAL 0.7 MG/DL (0.2-1.0); CREATININE FOR GFR 0.72 MG/DL (0.55-1.30); GLOMERULAR FILTRATION RATE > 60.0 (>60); LDH LACTATE DEHYDROGENASE 229 U/L (84-246); URIC ACID 6.4 MG/DL (2.6-6.0)
[2019-05-21 18:51] LABS: TOTAL PROTEIN,RANDOM URINE 22.1 MG/DL (0.0-12.0)
== END ==
LOC: M SMT 15:24
PROVIDERS: ATTEND Advanced Practice Midwife
DX: O10.93 Unspecified pre-existing hypertension complicating the puerperium (principal); Z3A.00 Weeks of gestation of pregnancy not specified

== ENCOUNTER 2020-02-26 07:05 | Emergency (ER) | payer OTHER ==
[~2020-02-26] VITALS: Ht 154.9 cm; Wt 88.6 kg
[~2020-02-26 07:05] MED LIST changes: -VALA1TAB2; +VALA1TAB5
[2020-02-26] MEDS ORDERED: TETRACAINE 0.5% OPHTH SOLN 4ML OS ONE (07:45)
[2020-02-26] MEDS ORDERED: FLUORESCEIN OPHTH 1 MG STRIP OS ONE (07:45)
[2020-02-26 08:08] LABS: BASO % 0.3 % (0.0-1.0); EOS # 0.1 10^3/uL (0.0-0.5); EOS % 1.3 % (0.0-3.0); HEMATOCRIT 39.5 % (36.0-47.0); HEMOGLOBIN 13.3 g/dl (12.0-15.5); LYMPH # 2.7 10^3/uL (1.5-5.0); LYMPH % 36.3 % (24.0-44.0); MEAN CORPUSCULAR HEMOGLOBIN 29.3 pg (27.0-33.0); MEAN CORPUSCULAR HGB CONC 33.7 g/dl (32.0-36.5); MONO # 0.6 10^3/uL (0.0-0.8); MONO % 7.3 % (0.0-5.0); NEUTROPHILS # 4.1 10^3/uL (1.5-8.5); NEUTROPHILS % 54.5 % (36.0-66.0); PLATELET COUNT, AUTOMATED 261 10^3/uL (150-450); RED BLOOD COUNT 4.54 10^6/uL (4.00-5.40); WHITE BLOOD COUNT 7.5 10^3/uL (4.0-10.0)
[2020-02-26] MEDS ORDERED: ISOVUE-370 76% 100ML VIAL As Ordered ONE (08:18)
[2020-02-26 08:42] LABS: ERYTHROCYTE SEDIMENTATION RATE 31 mm/hr (0-20)
--- NOTE | 2020-02-26 08:47 | REP ---
Clinical: Left orbital pain. No swelling. Technique: Axial contrast enhanced images through the orbits with coronal and sagittal re-formations using 75 ml Isovue 370 intravenous contrast material. Findings: Very minimal left periorbital soft tissue swelling is suggested. No associated fluid collection/abscess identified. The left orbit including globe and intraconal contents appear normal and symmetric as compared to the unaffected right orbit. Extraocular musculature and orbital neurovascular bundle appear normal as well as the surrounding fat. The sinuses are well aerated and clear. Incidental right nasal piercing noted. The osseous structures are intact and normal. Bilateral temporomandibular joints appear normal. Visualized intracranial contents appear normal. Impression: Very minimal left periorbital soft tissue swelling. Otherwise unremarkable orbital CT examination. Electronically Signed by Magdy Burroughs MD 02/26/2020 08:39 A
[2020-02-26] MEDS ORDERED: CEFD300CAP PO (09:18)
[2020-02-26] MEDS ORDERED: BACT800T5 PO (09:18)
[2020-02-26 09:28] VITALS: BP 126/86
== END 2020-02-26 10:19 | disposition home or self-care (01) ==
LOC: M ED 07:05
DX: L03.213 Periorbital cellulitis (principal); H02.846 Edema of left eye, unspecified eyelid; I10 Essential (primary) hypertension; E28.2 Polycystic ovarian syndrome; F41.9 Anxiety disorder, unspecified; R51 Headache
CPT/HCPCS: 70481; 80047; 85025; 85652; 86140; 99284; Q9967

== ENCOUNTER 2023-03-23 06:55 | Emergency (ER) | payer OTHER ==
[~2023-03-23] VITALS: Ht 154.9 cm; Wt 65.9 kg
[~2023-03-23 06:55] MED LIST changes: +BACT800T5 PO; +CEFD300CAP PO; -CIPR0.3S OS; +CIPR0.3S37 OS; +DOXY-443 PO; -DOXY100C37 PO; +EMTR1TAB16 PO; +LABE100T6 PO; -LABE10TAB PO; -TRUVTAB PO
[2023-03-23] MEDS ORDERED: PERCOCET 5MG/325MG TAB PO ONE ×2 (10:15→13:40)
[2023-03-23 14:22] VITALS: BP 137/85
== END 2023-03-23 14:52 | disposition home or self-care (01) ==
LOC: M ED 06:55
DX: S83.411A Sprain of medial collateral ligament of right knee, initial encounter (principal); X50.0XXA Overexertion from strenuous movement or load, initial encounter; Y92.009 Unspecified place in unspecified non-institutional (private) residence as the place of occurrence of the external cause; Y93.02 Activity, running; Y99.8 Other external cause status; R51.9 Headache, unspecified; E28.2 Polycystic ovarian syndrome